=== PATIENT | female | born 1975 | race Caucasian/White ===

== ENCOUNTER → 2018-07-01 | Outpatient (CLI) | payer OTHER ==
[~2018-07-01] VITALS: Ht 160 cm; Wt 56.0 kg
[~2018-07-01] MED LIST: CYCLOBENZAPRINE10 MG PO; FLUOXETINE HCL40 MG PO; HYDROCODONE-AP1 EA11 PO; HYDROCODONE-AP1 EAC6 PO; IBUPROFEN 200200 M1 PO; MOBIC15 MG PO; NORCO 5-325 TA1 EACH PO; NORFLEX100 MG PO; PROZAC10 M1 PO; Relafen PO; TRAZODONE 150150 M1 PO; TRAZODONE HCL100 MG PO
[2018-07-01 14:15] VITALS: BP 126/89
== END | disposition home or self-care (01) ==
LOC: PAIN 11:19
DX: M54.12 Radiculopathy, cervical region (principal); F17.210 Nicotine dependence, cigarettes, uncomplicated; Z88.8 Allergy status to other drugs, medicaments and biological substances; Z88.1 Allergy status to other antibiotic agents; Z91.041 Radiographic dye allergy status; Z91.013 Allergy to seafood; Z79.899 Other long term (current) drug therapy

== ENCOUNTER → 2020-08-11 | Outpatient (CLI) | payer OTHER ==
[~2020-08-11] VITALS: Ht 160 cm; Wt 65.8 kg
[~2020-08-11] MED LIST changes: +CLONIDINE HCL0.1 M1 PO; +CYMBALTA60 MG PO; +NORVASC10 MG PO; +PROAIR HFA8.5 GM INH; +SEROQUEL 50 MG50 M1 PO; +TYLENOL EXTRA500 MG PO
[2020-08-11 13:01] VITALS: BP 134/91
--- NOTE | 2020-08-11 13:18 | NUR ---
[facility] Assessment: 1. History of Osteoarthritis: N History of Rheumatoid Arthritis: N 2. Height: 5 ft. 3 in. 160.0 cm. Weight: 145.0 lb. oz. 65.772 kg. Patient's BMI: 25.7 3. Vital Signs: BP: 134/91 Pulse: 77 Resp: 18 Temp: 02 Sat: 100 ECG Mon: 4. Pain Intensity: 8 5. Fall Risk: Dizziness: N Needs help standing or walking: N Fallen in the last 3 months: N Fall risk comments: 6. Patient on Blood Thinner: None 7. History of Hypertension: Y 8. Opioid Therapy greater than 6 weeks: N Opiate Contract Signed: 9. Risk Assessment Tool Provided: 7-MOD RISK 10. Functional Assessment Tool: 11. Recreational Drug Use: Never Drug Type: Tobacco Use: Current Every Day Smoker Tobacco Type: Cigarettes Amount or Packs/day: 1 PPD How Many Years: 26 Alcohol Use: Yes Frequency: Daily Quant: 2-3 GLASSES/WINE
== END | disposition home or self-care (01) ==
LOC: PAIN 06:59
PROVIDERS: ATTEND Anesthesiology Pain Medicine
DX: M54.12 Radiculopathy, cervical region (principal); G89.29 Other chronic pain; F32.9 Major depressive disorder, single episode, unspecified; I10 Essential (primary) hypertension; J45.909 Unspecified asthma, uncomplicated; F17.210 Nicotine dependence, cigarettes, uncomplicated; Z98.890 Other specified postprocedural states; Z79.899 Other long term (current) drug therapy; Z91.041 Radiographic dye allergy status; Z88.8 Allergy status to other drugs, medicaments and biological substances

== ENCOUNTER → 2020-10-04 | Outpatient (CLI) | payer OTHER ==
[~2020-10-04] VITALS: Ht 160 cm; Wt 64.9 kg
[~2020-10-04] MED LIST changes: +COZAAR100 MG PO; +METHADONE HCL 110 M1 PO; +TRIAMTERENE-HC1 EAC2 PO
[2020-10-04 12:48] VITALS: BP 128/81
== END ==
LOC: PAIN 06:54
PROVIDERS: ATTEND Anesthesiology Pain Medicine
DX: M54.12 Radiculopathy, cervical region (principal); F32.9 Major depressive disorder, single episode, unspecified; M25.512 Pain in left shoulder; F17.200 Nicotine dependence, unspecified, uncomplicated; Z88.8 Allergy status to other drugs, medicaments and biological substances; Z79.899 Other long term (current) drug therapy